=== PATIENT | female | born 1955 | race Two or more races ===

== ENCOUNTER 2019-02-20 13:45 | Outpatient (CLI) | payer OTHER ==
[~2019-02-20] VITALS: Ht 162.6 cm; Wt 68.9 kg
[2019-02-20 14:45] VITALS: BP 108/55
[2019-02-20] MEDS ORDERED: TRAMADOL HCL50 MG ORAL (14:54)
[2019-02-20] MEDS ORDERED: VITAMIN D31000 UNI1 PO (14:54)
[2019-02-20] MEDS ORDERED: OMEPRAZOLE40 M1 ORAL (14:54)
[2019-02-20] MEDS ORDERED: SERTRALINE HCL50 MG ORAL (14:54)
[2019-02-20] MEDS ORDERED: VITAMIN B2 PO (14:54)
[2019-02-20] MEDS ORDERED: SERTRALINE HCL25 MG ORAL (14:54)
[2019-02-20] MEDS ORDERED: PRAVASTATIN SOD20 M1 ORAL (14:54)
== END 2019-02-20 15:45 | disposition home or self-care (01) ==
LOC: PAN 13:45
DX: R10.9 Unspecified abdominal pain (principal)
CPT/HCPCS: G0463

== ENCOUNTER 2019-09-18 13:03 | Outpatient (CLI) | payer OTHER ==
[~2019-09-18 13:03] MED LIST: OMEPRAZOLE40 M1 ORAL; PRAVASTATIN SOD20 M1 ORAL; SERTRALINE HCL25 MG ORAL; SERTRALINE HCL50 MG ORAL; TRAMADOL HCL50 MG ORAL; VITAMIN B2 PO; VITAMIN D31000 UNI1 PO
[2019-09-18 15:26] VITALS: BP 108/37
--- NOTE | 2019-09-18 23:30 | Progress Note ---
DATE: 09/18/2019 Patient is here post endoscopy and colonoscopy followup. PHYSICAL EXAMINATION: VITAL SIGNS: Temperature 98.2, vital signs stable. HEENT: Normocephalic and atraumatic. Sclerae anicteric. NECK: Supple. No lymphadenopathy. CARDIOVASCULAR: Regular rate and rhythm. Plus S1, S2. LUNGS: Clear to auscultation bilaterally. ABDOMEN: Positive bowel sounds. Soft and nontender. No rebound. No guarding. EXTREMITIES: No cyanosis, no clubbing, no edema. ASSESSMENT: This is a pleasant 64-year-old female status post endoscopy and colonoscopy. Endoscopy showed H. pylori-negative gastritis. Colonoscopy showed 1 polyp, which was removed. Patient at this time is asymptomatic. PLAN: Continue on PPI daily. Repeat colonoscopy in 5 years. Patient is to come back earlier if there are any symptoms. . Kelvin Spencer M.D. DR: SOFIA JOB#: [id number] CC:
== END 2019-09-18 15:56 | disposition home or self-care (01) ==
LOC: PAN 13:03
DX: K29.70 Gastritis, unspecified, without bleeding (principal); K63.5 Polyp of colon
CPT/HCPCS: 99212